=== PATIENT | male | born 1950 | race Caucasian/White ===

== ENCOUNTER 2018-12-13 12:47 | Emergency (ER) | payer MEDICAID, MEDICARE, OTHER ==
[~2018-12-13] VITALS: Ht 170.2 cm; Wt 108.9 kg
[~2018-12-13 12:47] MED LIST: BUPR75TA4; CIPR-273; DIVA125T12; DOXY75CA4; DULO60CA; TRAM-411
[2018-12-13 13:53] LABS: Alcohol, Urine < 3.0 mg/dL (0-5); Amphetamine Screen, Urine NEGATIVE (NEGATIVE); Barbiturate Scree,Urine NEGATIVE (NEGATIVE); Benzodiazephine Screen, Urine NEGATIVE (NEGATIVE); Cannabinoid Screen, Urine NEGATIVE (NEGATIVE); Cocaine Screen, Urine NEGATIVE (NEGATIVE); Opiate Scree,Urine NEGATIVE (NEGATIVE); Phencyclidine Screen, Urine NEGATIVE (NEGATIVE)
[2018-12-13 15:35] LABS: Basophils # (auto) 0 uL; Basophils % (auto) 0.2 % (0.0-2.0); Eosinophils # (auto) 0 uL; Eosinophils % (auto) 0.3 % (0.0-7.0); Hematocrit 43.4 % (41.0-53.0); Hemoglobin 14.7 g/dL (13.5-17.5); Lymphocytes # (auto) 1.3 uL; Lymphocytes % (auto) 18.2 % (10.0-50.0); Mean Corpuscular Hemoglobin 32.3 pg (28.0-32.0); Mean Corpuscular Hgb Conc. 33.8 g/dL (32.0-36.0); Mean Corpuscular Volume 95.4 fL (80.0-100.0); Monocytes # (auto) 0.3 uL; Monocytes % (auto) 4.5 % (0.0-12.0); Neutrophils # (auto) 5.5 uL; Neutrophils % (auto) 76.8 % (37.0-80.0); Nucleated Red Blood Cells % 0.1 %; Platelet Count (auto) 269 10^3/uL (140-450); Red Blood Cells 4.55 10^6/uL (4.5-5.90); Red Cell Distribution Width 14.3 % (11.8-14.3); White Blood Cell 7.1 10^3/uL (4.4-10.8)
[2018-12-13 15:48] LABS: Albumin 3.6 g/dL (3.4-5.0); Anion Gap 7 (5-15); BUN/Creatinine Ratio 13.7; Blood Alcohol < 3.0 mg/dL (0-5); Blood Urea Nitrogen 10 mg/dL (7-18); Calcium 8.4 mg/dL (8.5-10.1); Carbon Dioxide 22 mmol/L (21-32); Chloride 109 mmol/L (98-107); GFR African American 137 mL/min; GFR Non-African American 113 mL/min; Glucose 106 mg/dL (74-106); Magnesium 2.4 mg/dL (1.6-2.6); Potassium 3.7 mmol/L (3.5-5.1); Sodium 138 mmol/L (136-145)
[2018-12-13 15:53] LABS: Alanine Aminotransferase 29 U/L (16-61); Alkaline Phosphatase 103 U/L (45-117); Aspartate Aminotransferase 27 U/L (15-37); Bilirubin, Total 0.6 mg/dL (0.2-1.0); Total Protein 7.4 g/dL (6.4-8.2)
[2018-12-13 16:09] LABS: INR 0.93 (0.9-1.15); Partial Thromboplastin Time 28.2 sec (23.78-33.04)
[2018-12-13 17:30] VITALS: BP 129/69
== END 2018-12-13 17:52 | disposition home or self-care (01) ==
LOC: EDUNIT# 12:47 → ER 12:47 → EDBD 12:47 → ER 17:52
DX: R51 Headache (principal); I10 Essential (primary) hypertension; F31.9 Bipolar disorder, unspecified; Z98.49 Cataract extraction status, unspecified eye
CPT/HCPCS: 36415; 70450; 80053; 80307; 80320; 83735; 84484; 85025; 85610; 85730; 93005; 94761

== ENCOUNTER 2019-06-08 23:55 | Inpatient (IN) | payer OTHER ==
[~2019-06-08] VITALS: Ht 170.2 cm; Wt 94.8 kg
[2019-06-09 01:29] LABS: Basophils # (auto) 0 uL; Basophils % (auto) 0.2 % (0.0-2.0); Eosinophils # (auto) 0 uL; Eosinophils % (auto) 0.2 % (0.0-7.0); Hematocrit 46.4 % (41.0-53.0); Hemoglobin 16.2 g/dL (13.5-17.5); Lymphocytes # (auto) 1.7 uL; Lymphocytes % (auto) 14.9 % (10.0-50.0); Mean Corpuscular Hemoglobin 33.2 pg (28.0-32.0); Mean Corpuscular Hgb Conc. 34.9 g/dL (32.0-36.0); Mean Corpuscular Volume 94.9 fL (80.0-100.0); Monocytes # (auto) 0.6 uL; Monocytes % (auto) 5.3 % (0.0-12.0); Neutrophils # (auto) 9.1 uL; Neutrophils % (auto) 79.4 % (37.0-80.0); Platelet Count (auto) 290 10^3/uL (140-450); Red Blood Cells 4.89 10^6/uL (4.5-5.90); Red Cell Distribution Width 13.8 % (11.8-14.3); White Blood Cell 11.4 10^3/uL (4.4-10.8)
[2019-06-09 01:42] LABS: Albumin 3.7 g/dL (3.4-5.0); Calcium 8.9 mg/dL (8.5-10.1); Potassium 4.3 mmol/L (3.5-5.1)
[2019-06-09 01:44] LABS: BUN/Creatinine Ratio 14.3
[2019-06-09 01:47] LABS: Bilirubin, Total 0.4 mg/dL (0.2-1.0); Total Protein 7.7 g/dL (6.4-8.2)
[2019-06-09] MEDS ORDERED: SODIUM CHLORIDE 0.9% 1,000 ML IV ONE (02:15)
[2019-06-09] MEDS ORDERED: ONDANSETRON HCL 4 MG/2 ML VIAL IV ONE (02:15)
[2019-06-09] MEDS ORDERED: MORPHINE SULFATE 4 MG/ML SYR/VIAL IV ONE (02:15)
[2019-06-09 02:16] LABS: Urine Bacteria NONE SEEN /hpf (None Seen); Urine Blood Negative /uL (Negative); Urine Mucus FEW (None Seen); Urine Specific Gravity 1.013 (1.001-1.035); Urine WBC 2 /hpf (0 - 3)
[2019-06-09] MEDS ORDERED: ONDANSETRON HCL 4 MG/2 ML VIAL IV PRN (05:00)
[2019-06-09] MEDS ORDERED: NITROGLYCERIN 0.4 MG SL TAB SL PRN (05:00)
[2019-06-09] MEDS ORDERED: SODIUM CHLORIDE 0.9% 1,000 ML IV SCH (05:00)
[2019-06-09] MEDS ORDERED: LABETALOL HCL 5 MG/ML ML 20ML VIAL IV PRN (05:00)
[2019-06-09] MEDS ORDERED: MORPHINE SULF INJ 2 MG/ML SYRINGE 1ML IV PRN (05:00)
[2019-06-09] MEDS: HYDROmorphone HCL 2 MG/ML VL IV PRN ×4 (05:36→21:59)
[2019-06-09 06:05] VITALS: BP 144/90
--- NOTE | 2019-06-09 06:05 | NUR ---
TELE ADMIT FROM ER RECEIVED PATIENT VIA GURNEY FROM ER. PATIENT A/OX4, AMBULATORY. NO S/S OF DISTRESS OR SOB. NO PAIN NOTED OR REPORTED. UPDATED PATIENT ON POC, VERBALIZED UNDERSTANDING. BED LOCKED IN LOW POSITION, CALL LIGHT WITHIN REACH. WILL CONTINUE TO MONITOR PATIENT Q1HR AND PRN.
--- NOTE | 2019-06-09 07:03 | NUR ---
MED REC PATIENT UNABLE TO RECALL DOSAGES OF CURRENT MEDICATIONS. STATED HE WILL CALL TO BRING IN LIST OF MEDICATIONS AND DOSAGES TODAY.
[2019-06-09] MEDS: buPROPion HCL 75 MG TAB PO SCH ×2 (07:05→17:51)
--- NOTE | 2019-06-09 08:00 | NUR ---
Opening Shift Note Assumed care of patient, awake and alert. No S/S of distress/SOB or pain. Patient is currently NPO except for meds. Instructed on POC and to call for assist PRN, will continue to monitor for changes Q1hr and PRN.
[2019-06-09 09:00] VITALS: BP 163/84
[2019-06-09] MEDS: FAMOTIDINE (10MG/ML) 2ML VL IV SCH ×2 (10:08→21:41)
[2019-06-09] MEDS: amLODIPine BESYLATE 5 MG TAB PO SCH (10:09)
[2019-06-09] MEDS ORDERED: LORazepam 2MG/ML-1ML VIAL IV ONE (12:00)
[2019-06-09 13:00] VITALS: BP 182/95
[2019-06-09] MEDS ORDERED: LORazepam 2MG/ML-1ML VIAL IV PRN (13:15)
[2019-06-09] MEDS: LACTATED RINGER'S 1,000 ML IV SCH ×2 (14:17→21:41)
[2019-06-09] MEDS: FOLIC ACID 1 MG, MULTIPLE VITAMIN 10 ML, MAGNESIUM SULF SDV 50% 8 MEQ, THIAMINE INJ 100... INJ SCH ×5 (14:17)
--- NOTE | 2019-06-09 14:18 | NUR ---
Banana bag Called pharmacy twice regarding banana bag. Just now received it from ED. Started banana bag on patient.
[2019-06-09 17:00] VITALS: BP 153/90
[2019-06-09] MEDS ORDERED: SODIUM CHLORIDE 0.9% 2,000 ML IV ONE (17:30)
[2019-06-09] MEDS: TAMSULOSIN HYDROCHLORIDE 0.4 MG CAP PO SCH (17:50)
--- NOTE | 2019-06-09 19:59 | NUR ---
Opening Shift Note Assumed care of patient, awake and alert. No S/S of distress/SOB c/o pancreatitis pain 03/16. Instructed on POC and to call for assist PRN, will continue to monitor for changes Q1hr and PRN.Told patient that pain med.is due at ten o clock tonight.
[2019-06-09 22:00] VITALS: BP 151/83
[2019-06-10] MEDS: HYDROmorphone HCL 2 MG/ML VL IV PRN ×3 (04:48→23:23)
[2019-06-10 05:00] VITALS: BP 156/96
[2019-06-10] MEDS: LACTATED RINGER'S 1,000 ML IV SCH ×2 (05:30→17:10)
[2019-06-10 05:50] LABS: Basophils # (auto) 0 uL; Basophils % (auto) 0.1 % (0.0-2.0); Eosinophils # (auto) 0 uL; Hematocrit 43.6 % (41.0-53.0); Hemoglobin 15.4 g/dL (13.5-17.5); Lymphocytes # (auto) 1.3 uL; Lymphocytes % (auto) 6.1 % (10.0-50.0); Mean Corpuscular Hemoglobin 33.4 pg (28.0-32.0); Mean Corpuscular Hgb Conc. 35.4 g/dL (32.0-36.0); Mean Corpuscular Volume 94.3 fL (80.0-100.0); Monocytes # (auto) 1.4 uL; Monocytes % (auto) 6.6 % (0.0-12.0); Neutrophils # (auto) 18.3 uL; Neutrophils % (auto) 87.2 % (37.0-80.0); Platelet Count (auto) 256 10^3/uL (140-450); Red Blood Cells 4.62 10^6/uL (4.5-5.90); Red Cell Distribution Width 13.7 % (11.8-14.3)
[2019-06-10 06:12] LABS: Calcium 7.9 mg/dL (8.5-10.1); Potassium 3.6 mmol/L (3.5-5.1)
[2019-06-10 06:15] LABS: Cholesterol 110 mg/dL (< 200); Triglycerides 63 mg/dL (< 150)
[2019-06-10 06:17] LABS: BUN/Creatinine Ratio 10.9
[2019-06-10 06:27] LABS: HDL Cholesterol 64 mg/dL (40-59); LDL Cholesterol 47 mg/dL (< 100); Lipase 2748 U/L (73-393)
[2019-06-10] MEDS: buPROPion HCL 75 MG TAB PO SCH ×2 (06:31→18:47)
--- NOTE | 2019-06-10 07:17 | NUR ---
Report given to Gilberto Tineo, patient is resting , no distress.
--- NOTE | 2019-06-10 07:28 | NUR ---
Opening Shift Note Assumed care of patient, awake and alert. No S/S of distress/SOB. PT denies having any pain at this time. Bed in lowest and locked position with side rails upx2 and call light in reach. Instructed on POC and to call for assist PRN, will continue to monitor for changes Q1hr and PRN.
[2019-06-10 09:00] VITALS: BP 160/88
[2019-06-10] MEDS: amLODIPine BESYLATE 5 MG TAB PO SCH (11:14)
[2019-06-10] MEDS: FAMOTIDINE (10MG/ML) 2ML VL IV SCH ×2 (11:15→21:23)
[2019-06-10] MEDS ORDERED: SODIUM CHLORIDE 0.9% 1,000 ML IV ONE (11:45)
--- NOTE | 2019-06-10 11:49 | NUR ---
IV insertion IV access obtained, via clean sterile technique by inserting 22 gauge catheter at right FA after 1 attempt(s). IV secured properly. No trauma to site. Patient tolerated well.
--- NOTE | 2019-06-10 12:24 | NUR ---
Hansel AUSTIN AT PT BEDSIDE DISCUSSING POC WITH PT.
--- NOTE | 2019-06-10 14:50 | NUR ---
IV insertion IV access obtained, via clean sterile technique by inserting 20 gauge catheter at right FA after 1 attempt(s). IV secured properly. No trauma to site. Patient tolerated well.
[2019-06-10] MEDS: FOLIC ACID 1 MG, MULTIPLE VITAMIN 10 ML, MAGNESIUM SULF SDV 50% 8 MEQ, THIAMINE INJ 100... INJ SCH ×5 (14:53)
[2019-06-10 16:41] VITALS: BP 162/85
--- NOTE | 2019-06-10 16:45 | NUR ---
D/C Planning Per consult for home health safety evaluation. [facility] Ph:) Fax:) faxed medial records. Per Jodi from [facility] Pt has been accepted and will be seen within 48hrs upon d/c day. Contacted [facility] ph:( [phone]) Fax:( [phone]) faxed medical records and requested to provided authorization to [employer] . Addendum: 06/10/19 at 1659 by WALDO RICKETTS Amended: Links added.
[2019-06-10] MEDS: TAMSULOSIN HYDROCHLORIDE 0.4 MG CAP PO SCH (18:48)
[2019-06-10 18:56] LABS: Basophils # (auto) 0.1 uL; Basophils % (auto) 0.2 % (0.0-2.0); Eosinophils # (auto) 0 uL; Hematocrit 42.4 % (41.0-53.0); Hemoglobin 14.8 g/dL (13.5-17.5); Lymphocytes # (auto) 1.1 uL; Lymphocytes % (auto) 4.9 % (10.0-50.0); Mean Corpuscular Hemoglobin 33.1 pg (28.0-32.0); Mean Corpuscular Hgb Conc. 34.9 g/dL (32.0-36.0); Mean Corpuscular Volume 94.8 fL (80.0-100.0); Monocytes # (auto) 1.4 uL; Monocytes % (auto) 6.7 % (0.0-12.0); Neutrophils # (auto) 18.9 uL; Neutrophils % (auto) 88.2 % (37.0-80.0); Platelet Count (auto) 229 10^3/uL (140-450); Red Blood Cells 4.48 10^6/uL (4.5-5.90); Red Cell Distribution Width 13.6 % (11.8-14.3); White Blood Cell 21.5 10^3/uL (4.4-10.8)
--- NOTE | 2019-06-10 19:52 | NUR ---
Opening Shift Note Assumed care of patient, awake and alert. No S/S of distress/SOB or pain. Instructed on POC and to call for assist PRN, will continue to monitor for changes Q1hr and PRN.
[2019-06-10 23:43] VITALS: BP 155/96
[2019-06-11] MEDS: LACTATED RINGER'S 1,000 ML IV SCH ×3 (00:41→10:24)
[2019-06-11 05:16] VITALS: BP 137/87
--- NOTE | 2019-06-11 06:10 | NUR ---
Called the and informed that her signed the papers for living against medical advise,is waiting for her to pick him up, and the said she will come. Addendum: 06/11/19 at 0614 by Kera Correia RN Wrong notes, wrong patient.
[2019-06-11] MEDS: buPROPion HCL 75 MG TAB PO SCH ×2 (06:20→17:58)
--- NOTE | 2019-06-11 07:10 | NUR ---
Report given to Gilberto Tineo, patient is resting no distress.
[2019-06-11 08:00] VITALS: BP 136/83
--- NOTE | 2019-06-11 09:35 | NUR ---
SPOKE TO DR. Hansel MARCOS. NEW ORDERS RECEIVED READ BACK AND VERIFIED.
[2019-06-11 10:11] LABS: Basophils # (auto) 0.1 uL; Basophils % (auto) 0.4 % (0.0-2.0); Eosinophils # (auto) 0 uL; Eosinophils % (auto) 0.1 % (0.0-7.0); Hematocrit 41.5 % (41.0-53.0); Hemoglobin 14.7 g/dL (13.5-17.5); Lymphocytes # (auto) 1.2 uL; Lymphocytes % (auto) 6.2 % (10.0-50.0); Mean Corpuscular Hemoglobin 33.3 pg (28.0-32.0); Mean Corpuscular Hgb Conc. 35.4 g/dL (32.0-36.0); Mean Corpuscular Volume 94.3 fL (80.0-100.0); Monocytes # (auto) 1.2 uL; Monocytes % (auto) 6.1 % (0.0-12.0); Neutrophils # (auto) 16.7 uL; Neutrophils % (auto) 87.2 % (37.0-80.0); Platelet Count (auto) 231 10^3/uL (140-450); Red Blood Cells 4.41 10^6/uL (4.5-5.90); Red Cell Distribution Width 13.8 % (11.8-14.3); White Blood Cell 19.2 10^3/uL (4.4-10.8)
[2019-06-11] MEDS: FAMOTIDINE (10MG/ML) 2ML VL IV SCH (10:23)
[2019-06-11] MEDS: amLODIPine BESYLATE 5 MG TAB PO SCH (10:24)
[2019-06-11 10:27] LABS: BUN/Creatinine Ratio 12.5; Calcium 8.6 mg/dL (8.5-10.1); Magnesium 2.4 mg/dL (1.6-2.6); Potassium 3.3 mmol/L (3.5-5.1)
[2019-06-11] MEDS: FOLIC ACID 1 MG, MULTIPLE VITAMIN 10 ML, MAGNESIUM SULF SDV 50% 8 MEQ, THIAMINE INJ 100... INJ SCH ×5 (12:30)
[2019-06-11] MEDS: LACTULOSE 20Gm/30ML SOLN PO PRN ×2 (12:30→18:34)
[2019-06-11 13:00] VITALS: BP 130/84
[2019-06-11 16:49] VITALS: BP 127/72
[2019-06-11] MEDS: TAMSULOSIN HYDROCHLORIDE 0.4 MG CAP PO SCH (17:58)
--- NOTE | 2019-06-11 19:00 | NUR ---
DISCUSSED THE SOCIAL SERVICE CONSULT FOR HOME HEALTH WITH THE PATIENT. THE WAS EDUCATED ON THE NEED FOR HOME HEALTH. THE PATIENT STATED "I DON'T NEED HOME HEALTH. I CAN CARE FOR MYSELF AND MY CARES FOR ME WELL". THE PATIENT STATED THAT HE LIVES WITH HIS . THE PATIENT VERBALLY REFUSES THE SOCIAL SERVICE CONSULT AND THE HOME HEALTH EVALUATION. THE PATIENT THEN STATED "I REFUSE THE HOME HEALTH AND I WOULD LIKE TO GO HOME TONIGHT.". CARE ENDORSED TO MARTA MACIAS RN
--- NOTE | 2019-06-11 19:25 | NUR ---
Opening Note Received report from rosemary Vance RN. Patient is alert and oriented, no distress noted. Spoke with patient together with day Nurse. Patient states he wants to go home tonight and refused to wait for Home Health evaluation. Will call and prepare the d/c papers.
--- NOTE | 2019-06-13 16:20 | NUR ---
Discharge planning per consult, patient has orders for a home health evaluation. referral faxed to [facility]. Placed a follow up call, spoke with Nacho and she advised they will accept this patient and start of care would be on Thursday06.15.19. [place] [facility] Addendum: 06/13/19 at 1624 by LUPE KEENAN Amended: Links added.
== END 2019-06-11 20:15 | disposition home health service (06) | DRG 440 ==
LOC: ER 06-09 00:13 → TELE 06-09 00:14 → TELE-WESTW 06-09 06:05
PROVIDERS: ADMIT Nurse Practitioner Acute Care; ATTEND Internal Medicine
DX: K85.20 Alcohol induced acute pancreatitis without necrosis or infection (principal); I10 Essential (primary) hypertension; N40.0 Benign prostatic hyperplasia without lower urinary tract symptoms; E66.9 Obesity, unspecified; F10.10 Alcohol abuse, uncomplicated; N20.0 Calculus of kidney; F31.9 Bipolar disorder, unspecified; F41.9 Anxiety disorder, unspecified; K59.00 Constipation, unspecified; Z68.32 Body mass index [BMI] 32.0-32.9, adult
CPT/HCPCS: 36415; 74176; 74181; 80048; 80053; 80061; 80320; 81001; 83690; 83735; 85025; 87040; 96361; 96365; 96375; G0378; J2405; J3490

== ENCOUNTER 2019-06-21 23:15 | Emergency (ER) | payer OTHER ==
[~2019-06-21 23:15] MED LIST changes: -CIPR-273; -DOXY75CA4
== END 2019-06-22 00:17 | disposition left against medical advice (07) ==
LOC: ER 23:19
DX: R10.9 Unspecified abdominal pain (principal); Z53.21 Procedure and treatment not carried out due to patient leaving prior to being seen by health care provider

== ENCOUNTER 2019-07-01 06:27 | Inpatient (IN) | payer OTHER ==
[~2019-07-01] VITALS: Ht 170.2 cm; Wt 88.0 kg
[2019-07-01 07:18] LABS: Basophils # (auto) 0.1 uL; Basophils % (auto) 0.9 % (0.0-2.0); Eosinophils # (auto) 0.1 uL; Eosinophils % (auto) 1.3 % (0.0-7.0); Hematocrit 44.1 % (41.0-53.0); Hemoglobin 15.6 g/dL (13.5-17.5); Lymphocytes # (auto) 1.4 uL; Lymphocytes % (auto) 16.7 % (10.0-50.0); Mean Corpuscular Hemoglobin 33.3 pg (28.0-32.0); Mean Corpuscular Hgb Conc. 35.4 g/dL (32.0-36.0); Mean Corpuscular Volume 94.1 fL (80.0-100.0); Monocytes # (auto) 0.4 uL; Monocytes % (auto) 5.3 % (0.0-12.0); Neutrophils # (auto) 6.4 uL; Neutrophils % (auto) 75.8 % (37.0-80.0); Nucleated Red Blood Cells % 0.1 %; Platelet Count (auto) 317 10^3/uL (140-450); Red Blood Cells 4.68 10^6/uL (4.5-5.90); Red Cell Distribution Width 13.4 % (11.8-14.3); White Blood Cell 8.4 10^3/uL (4.4-10.8)
[2019-07-01 07:38] LABS: Albumin 3.3 g/dL (3.4-5.0); Calcium 8.3 mg/dL (8.5-10.1); Potassium 3.8 mmol/L (3.5-5.1)
[2019-07-01 07:45] LABS: BUN/Creatinine Ratio 14.5
[2019-07-01 07:46] LABS: Bilirubin, Total 0.6 mg/dL (0.2-1.0); Total Protein 7.4 g/dL (6.4-8.2)
[2019-07-01] MEDS ORDERED: MORPHINE SULFATE 4 MG/ML SYR/VIAL IV ONE (12:30)
[2019-07-01] MEDS ORDERED: ONDANSETRON HCL 4 MG/2 ML VIAL IV ONE (12:30)
[2019-07-01] MEDS ORDERED: PIPERACILLIN-TAZOB 3.375GM 100 ML IV ONE (13:00)
[2019-07-01] MEDS ORDERED: NITROGLYCERIN 0.4 MG SL TAB SL PRN (15:15)
[2019-07-01] MEDS ORDERED: ONDANSETRON HCL 4 MG/2 ML VIAL IV PRN (15:15)
[2019-07-01] MEDS ORDERED: MORPHINE SULF INJ 2 MG/ML SYRINGE 1ML IV PRN (15:15)
[2019-07-01] MEDS: SODIUM CHLORIDE 0.9% 1,000 ML IV SCH ×2 (15:36→23:59)
[2019-07-01] MEDS: MORPHINE SULF INJ 2 MG/ML SYRINGE 1ML IV PRN (18:09)
[2019-07-01] MEDS: HYDROcodone-ACET 5/325MG TAB PO PRN (21:25)
[2019-07-01 23:11] VITALS: BP 124/75
[2019-07-02] MEDS: FAMOTIDINE (10MG/ML) 2ML VL IV SCH ×2 (03:03→09:30)
[2019-07-02 05:00] VITALS: BP 119/74
[2019-07-02 05:31] VITALS: BP 126/72
[2019-07-02 06:53] LABS: Basophils # (auto) 0 uL; Basophils % (auto) 0.7 % (0.0-2.0); Eosinophils # (auto) 0.1 uL; Eosinophils % (auto) 1.7 % (0.0-7.0); Hematocrit 40.3 % (41.0-53.0); Hemoglobin 13.7 g/dL (13.5-17.5); Lymphocytes # (auto) 1.5 uL; Lymphocytes % (auto) 26.7 % (10.0-50.0); Mean Corpuscular Hemoglobin 32.7 pg (28.0-32.0); Mean Corpuscular Volume 96.1 fL (80.0-100.0); Monocytes # (auto) 0.4 uL; Neutrophils # (auto) 3.5 uL; Neutrophils % (auto) 62.9 % (37.0-80.0); Nucleated Red Blood Cells % 0.1 %; Platelet Count (auto) 260 10^3/uL (140-450); Red Blood Cells 4.19 10^6/uL (4.5-5.90); Red Cell Distribution Width 13.4 % (11.8-14.3); White Blood Cell 5.6 10^3/uL (4.4-10.8)
[2019-07-02 07:01] LABS: Albumin 2.9 g/dL (3.4-5.0); BUN/Creatinine Ratio 14.5; Calcium 7.9 mg/dL (8.5-10.1); Potassium 3.8 mmol/L (3.5-5.1)
[2019-07-02 07:09] LABS: Bilirubin, Total 0.5 mg/dL (0.2-1.0); Total Protein 6.6 g/dL (6.4-8.2)
[2019-07-02 09:00] VITALS: BP 127/84
[2019-07-02] MEDS: SODIUM CHLORIDE 0.9% 1,000 ML IV SCH ×3 (09:32→23:15)
[2019-07-02] MEDS: HYDROcodone-ACET 5/325MG TAB PO PRN ×2 (12:57→22:16)
[2019-07-02 13:00] VITALS: BP 134/80
[2019-07-02] MEDS ORDERED: SODIUM CHLORIDE 0.9% 2,000 ML IV ONE (13:00)
[2019-07-02] MEDS ORDERED: BUPR100T14 PO (13:07)
[2019-07-02 17:00] VITALS: BP 128/78
[2019-07-03] MEDS: HYDROcodone-ACET 5/325MG TAB PO PRN (04:12)
[2019-07-03 05:53] LABS: Basophils # (auto) 0 uL; Basophils % (auto) 0.3 % (0.0-2.0); Eosinophils # (auto) 0.2 uL; Eosinophils % (auto) 2.7 % (0.0-7.0); Hematocrit 40.6 % (41.0-53.0); Hemoglobin 13.9 g/dL (13.5-17.5); Lymphocytes # (auto) 2.3 uL; Lymphocytes % (auto) 39.8 % (10.0-50.0); Mean Corpuscular Hemoglobin 32.5 pg (28.0-32.0); Mean Corpuscular Hgb Conc. 34.2 g/dL (32.0-36.0); Mean Corpuscular Volume 95.1 fL (80.0-100.0); Monocytes # (auto) 0.5 uL; Neutrophils # (auto) 2.9 uL; Neutrophils % (auto) 49.2 % (37.0-80.0); Nucleated Red Blood Cells % 0.1 %; Platelet Count (auto) 261 10^3/uL (140-450); Red Blood Cells 4.27 10^6/uL (4.5-5.90); Red Cell Distribution Width 13.3 % (11.8-14.3); White Blood Cell 5.9 10^3/uL (4.4-10.8)
[2019-07-03 06:40] LABS: Potassium 3.5 mmol/L (3.5-5.1)
[2019-07-03 06:59] LABS: BUN/Creatinine Ratio 10.5; Calcium 8.3 mg/dL (8.5-10.1)
[2019-07-03] MEDS: MORPHINE SULF INJ 2 MG/ML SYRINGE 1ML IV PRN (08:58)
[2019-07-03] MEDS: SODIUM CHLORIDE 0.9% 1,000 ML IV SCH ×3 (08:58→23:15)
[2019-07-03] MEDS: FAMOTIDINE (10MG/ML) 2ML VL IV SCH (08:58)
[2019-07-03 09:00] VITALS: BP 152/87
[2019-07-03 13:02] VITALS: BP 140/89
[2019-07-03] MEDS ORDERED: SODIUM CHLORIDE 0.9% 2,000 ML IV ONE (13:30)
[2019-07-03 17:12] VITALS: BP 132/79
[2019-07-04 05:21] VITALS: BP 141/85
[2019-07-04 07:06] LABS: Basophils # (auto) 0.1 uL; Basophils % (auto) 0.8 % (0.0-2.0); Eosinophils # (auto) 0.3 uL; Eosinophils % (auto) 5.5 % (0.0-7.0); Hematocrit 39.9 % (41.0-53.0); Hemoglobin 14.1 g/dL (13.5-17.5); Lymphocytes # (auto) 2.3 uL; Lymphocytes % (auto) 37.7 % (10.0-50.0); Mean Corpuscular Hemoglobin 33.2 pg (28.0-32.0); Mean Corpuscular Hgb Conc. 35.3 g/dL (32.0-36.0); Monocytes # (auto) 0.7 uL; Monocytes % (auto) 10.9 % (0.0-12.0); Neutrophils # (auto) 2.8 uL; Neutrophils % (auto) 45.1 % (37.0-80.0); Nucleated Red Blood Cells % 0.2 %; Platelet Count (auto) 254 10^3/uL (140-450); Red Blood Cells 4.25 10^6/uL (4.5-5.90); Red Cell Distribution Width 13.3 % (11.8-14.3); White Blood Cell 6.1 10^3/uL (4.4-10.8)
[2019-07-04 07:29] LABS: BUN/Creatinine Ratio 6.3; Calcium 8.6 mg/dL (8.5-10.1); Magnesium 2.2 mg/dL (1.6-2.6); Potassium 3.7 mmol/L (3.5-5.1)
[2019-07-04 08:00] VITALS: BP 133/85
[2019-07-04 08:57] VITALS: BP 133/85
[2019-07-04] MEDS: FAMOTIDINE (10MG/ML) 2ML VL IV SCH (10:23)
[2019-07-04 13:00] VITALS: BP 128/79
[2019-07-04] MEDS: SODIUM CHLORIDE 0.9% 1,000 ML IV SCH (15:01)
[2019-07-04 16:43] VITALS: BP 134/89
[2019-07-04] MEDS ORDERED: ENSURE CLEAR Mixed Berry 8oz Carton PO SCH (18:00)
== END 2019-07-04 18:00 | disposition home health service (06) | DRG 439 ==
LOC: ER 06:30 → TELE 06:31 → TELE-WESTW 17:26 → TELE-EAST 07-02 04:12 → TELE-WESTW 07-02 17:50
PROVIDERS: ADMIT Internal Medicine; ATTEND Internal Medicine
DX: K85.90 Acute pancreatitis without necrosis or infection, unspecified (principal); E44.1 Mild protein-calorie malnutrition; K86.1 Other chronic pancreatitis; F31.9 Bipolar disorder, unspecified; F41.9 Anxiety disorder, unspecified; I10 Essential (primary) hypertension; M19.90 Unspecified osteoarthritis, unspecified site; Z80.3 Family history of malignant neoplasm of breast; Z68.30 Body mass index [BMI] 30.0-30.9, adult; Z83.3 Family history of diabetes mellitus; Z82.0 Family history of epilepsy and other diseases of the nervous system
CPT/HCPCS: 36415; 74176; 80048; 80053; 82150; 83605; 83690; 83735; 85025; 87040; 87081; 93005; 96365; 96375; G0378; J2405; J2543; J3490

== ENCOUNTER 2019-09-11 08:10 | Emergency (ER) | payer OTHER ==
[~2019-09-11] VITALS: Ht 170.2 cm; Wt 88.5 kg
[~2019-09-11 08:10] MED LIST changes: +BUPR100T14 PO; -BUPR75TA4; -DIVA125T12; -DULO60CA; -TRAM-411
[2019-09-11 08:15] VITALS: BP 125/76
[2019-09-11 09:00] LABS: Urine Bacteria NONE SEEN /hpf (None Seen); Urine Blood Negative /uL (Negative); Urine Mucus FEW (None Seen); Urine Specific Gravity 1.027 (1.001-1.035); Urine WBC 1 /hpf (0 - 3)
== END 2019-09-11 10:07 | disposition left against medical advice (07) ==
LOC: EDBD 08:30 → MERGE 08:30 → ER 08:30
DX: R10.10 Upper abdominal pain, unspecified (principal); Z53.21 Procedure and treatment not carried out due to patient leaving prior to being seen by health care provider
CPT/HCPCS: 81001

== ENCOUNTER 2023-01-02 12:28 | Inpatient (IN) | payer OTHER ==
[~2023-01-02] VITALS: Ht 170.2 cm; Wt 89.7 kg
[~2023-01-02 12:28] MED LIST changes: +BUPR-160 PO; -BUPR100T14 PO
[2023-01-02] MEDS ORDERED: SODIUM CHLORIDE 0.9% 1,000 ML IV ONE (13:45)
[2023-01-02] MEDS ORDERED: fentaNYL CITRATE 100 MCG/2 ML VL IV ONE (13:45)
[2023-01-02] MEDS ORDERED: TAMSULOSIN HYDROCHLORIDE 0.4 MG CAP PO ONE (13:45)
[2023-01-02 13:56] LABS: Urine Bacteria NONE SEEN /hpf (None Seen); Urine Blood 3+ /uL (Negative); Urine Hyaline Cast FEW /lpf (0 - 2); Urine Mucus FEW (None Seen); Urine Specific Gravity 1.025 (1.001-1.035); Urine WBC 1 /hpf (0 - 3)
[2023-01-02 14:11] LABS: Albumin 3.4 g/dL (3.4-5.0); Calcium 8.9 mg/dL (8.5-10.1); Potassium 3.8 mmol/L (3.5-5.1)
[2023-01-02 14:15] LABS: BUN/Creatinine Ratio 17.4 (10.0-20.0); Basophils # (auto) 0 10 ^3/uL (0-0.2); Basophils % (auto) 0.5 % (0.0-2.0); Bilirubin, Total 0.4 mg/dL (0.2-1.0); CRP High Sensitivity 0.02 mg/dL (< 0.3); Eosinophils # (auto) 0.1 10 ^3/uL (0-0.8); Eosinophils % (auto) 1.1 % (0.0-7.0); Hematocrit 42.1 % (41.0-53.0); Hemoglobin 14.5 g/dL (13.5-17.5); Lymphocytes # (auto) 1.9 10 ^3/uL (0.4-5.4); Lymphocytes % (auto) 26.7 % (10.0-50.0); Mean Corpuscular Hgb Conc. 34.4 g/dL (32.0-36.0); Monocytes # (auto) 0.6 10 ^3/uL (0-1.3); Monocytes % (auto) 7.7 % (0.0-12.0); Neutrophils # (auto) 4.7 10 ^3/uL (1.6-8.6); Nucleated Red Blood Cells % 0.1 %; Red Blood Cells 4.53 10^6/uL (4.5-5.90); Red Cell Distribution Width 13.9 % (11.8-14.3); Total Protein 6.9 g/dL (6.4-8.2); White Blood Cell 7.3 10^3/uL (4.4-10.8)
[2023-01-02] MEDS ORDERED: ACETAMINOPHEN 325 MG TAB PO PRN (15:00)
[2023-01-02] MEDS ORDERED: ONDANSETRON HCL 4 MG/2 ML VIAL IV PRN (15:00)
[2023-01-02] MEDS ORDERED: MORPHINE SULFATE INJ 2 MG/ml SYRG IV PRN ×2 (15:00)
[2023-01-02] MEDS ORDERED: NITROGLYCERIN 0.4 MG SL TAB SL PRN (15:00)
[2023-01-02] MEDS ORDERED: DOCUSATE SOD 100 MG CAP PO PRN (15:00)
[2023-01-02] MEDS ORDERED: LOS25T PO (20:54)
[2023-01-02] MEDS ORDERED: TAMS0.4C36 PO (20:54)
[2023-01-02 22:00] VITALS: BP 157/77
[2023-01-02] MEDS: HYDROcodone-ACET 5/325MG TAB PO PRN (22:06)
[2023-01-02] MEDS: amLODIPine BESYLATE 5 MG TAB PO SCH (22:08)
[2023-01-02] MEDS: SODIUM CHLORIDE 0.9% 1,000 ML IV SCH (22:40)
[2023-01-03 04:59] VITALS: BP 129/61
[2023-01-03 06:56] LABS: Potassium 3.4 mmol/L (3.5-5.1)
[2023-01-03 07:03] LABS: BUN/Creatinine Ratio 17.8 (10.0-20.0); Calcium 8.1 mg/dL (8.5-10.1)
[2023-01-03 09:00] VITALS: BP 119/61
[2023-01-03] MEDS ORDERED: buPROPion HCL 100 MG TAB PO SCH (10:00)
[2023-01-03] MEDS ORDERED: TAMSULOSIN HYDROCHLORIDE 0.4 MG CAP PO SCH (10:00)
[2023-01-03] MEDS: amLODIPine BESYLATE 5 MG TAB PO SCH (10:04)
[2023-01-03] MEDS: SODIUM CHLORIDE 0.9% 1,000 ML IV SCH (11:00)
[2023-01-03] MEDS ORDERED: POTASSIUM CHL 20 Meq TABLET PO ONE (11:45)
[2023-01-03] MEDS ORDERED: HYDR1TAB97 PO (13:21)
[2023-01-03 13:25] VITALS: BP 118/63
[2023-01-03] MEDS: HYDROcodone-ACET 5/325MG TAB PO PRN (14:05)
== END 2023-01-03 14:40 | disposition home or self-care (01) | DRG 694 ==
LOC: ER 12:28 → OVERFLOW 15:06 → WEST WING 16:29
PROVIDERS: ADMIT Internal Medicine; ATTEND Internal Medicine
DX: N13.2 Hydronephrosis with renal and ureteral calculous obstruction (principal); N13.8 Other obstructive and reflux uropathy; E11.9 Type 2 diabetes mellitus without complications; F31.9 Bipolar disorder, unspecified; G30.9 Alzheimer's disease, unspecified; F02.80 Dementia in other diseases classified elsewhere, unspecified severity, without behavioral disturbance, psychotic disturbance, mood disturbance, and anxiety; I10 Essential (primary) hypertension; N40.1 Benign prostatic hyperplasia with lower urinary tract symptoms; Z80.3 Family history of malignant neoplasm of breast; Z82.49 Family history of ischemic heart disease and other diseases of the circulatory system; Z79.899 Other long term (current) drug therapy; Z79.84 Long term (current) use of oral hypoglycemic drugs
CPT/HCPCS: 36415; 74018; 74176; 76775; 80048; 80053; 81001; 83605; 83690; 84484; 85025; 86141; 87086; 93005; 96361; 96374; G0378

== ENCOUNTER 2025-06-21 22:47 | Inpatient (IN) | payer OTHER ==
[~2025-06-21] VITALS: Ht 170.2 cm; Wt 92.1 kg
[~2025-06-21 22:47] MED LIST changes: -BUPR-160 PO; +BUPR-346 PO; +HYDR1TAB97 PO; +LOS25T PO; +TAMS0.4C39 PO
--- NOTE | 2025-06-21 22:59 | ECG ---
[facility] Test Date: 2025-06-21 Test Time: 22:47:41 Pat Name: GARTH AUSTIN Department: [facility] ED Patient ID: [facility]-[id number] Room: 0291T Gender: M Silverer: EDDIE : 1950 Requested By: EMERGENCY EMERGENCY Order Number: [id number] Reading MD: Phil Man Measurements Intervals Joffre Rate: 63 P: 23 AK: 188 QRS: -9 QRSD: 111 T: 39 QT: 444 QTc: 455 Interpretive Statements Sinus rhythm Abnormal R-wave progression, early transition Electronically Signed On 06-24-2025 18:43:05 PDT by Phil Man Please click the below link to view image of tracing.
--- NOTE | 2025-06-21 23:01 | ED.PDOC ---
History of Present Illness HPI Comments 74 year old male with PMHx HTN, enlarged prostate, bipolar disorder, presents to the ED with a chief compliant of syncopal episode onset today (06/21/25). Per EMS, patient was at [facility] when he was found slumped over on the [place], was unresponsive. EMS states patient was hypotensive BP 75/50, BG 202, IV fluids and 8 mg Zofran was given in route to ED. Upon ED arrival, patient states he has about 16 oz tequila prior to going for dinner, states he rarely drinks ETOH. Patient is currently experiencing nausea. Denies head injury, headache, dizziness, fever, chills, shortness of breath, chest pain. No other symptoms or modifying factors present at this time. Time Seen by MD: 22:55 Primary Care Provider: BRANDIE Reviewed Notes: Medications, Allergies Allergies: Coded Allergies: NO KNOWN ALLERGIES (Unverified , 05/11/11) Home Meds Active Scripts Hydrocodone-Acetaminophen (Hydrocodone/Acetaminophen 5-325 mg) 1 Tab Tab, 1 TAB PO Q6HPRN PRN, #20 TAB Prov:BAR MARCOS MD 01/03/23 Reported Medications Losartan Potassium (Losartan Potassium) 25 Mg Tab, 1 TAB PO DAILY 01/02/23 Tamsulosin Hcl (Tamsulosin Hcl) 0.4 Mg Cap, 1 CAP PO DAILY 01/02/23 Bupropion Hcl (Bupropion Hcl) 100 Mg Tab, 300 MG PO DAILY for 30 Days, MG 07/02/19 Information Source: Patient, Emergency Med Personnel Mode of Arrival: EMS Severity: Moderate Timing: Hours Duration: Since onset Prehospital treatment: IVF, Treatment (Zofran 8 mg) Past Medical History PAST MEDICAL HISTORY: Depression, HTN Past Medical History (Other): bipolar disorder, enlarged prostate Surgical History: Hernia Repair Family History Family History: Reviewed,noncontributory to illness Social History Smoker: Non-Smoker Alcohol: Occasionally Drugs: Denies Drug Use Lives In: Home Constitutional: denies: chills, diaphoresis, fatigue, fever, malaise, sweats, weakness, others EENTM: denies: blurred vision, double vision, ear bleeding, ear discharge, ear drainage, ear pain, ear ringing, eye pain, eye redness, hearing loss, mouth pain, mouth swelling, nasal discharge, nose bleeding, nose congestion, nose pain, photophobia, tearing, throat pain, throat swelling, voice changes, others Respiratory: denies: cough, hemoptysis, orthopnea, SOB at rest, shortness of breath, SOB with excertion, stridor, wheezing, others Cardiovascular: denies: chest pain, dizzy spells, diaphoresis, Dyspnea on exertion, edema, irregular heart beat, left arm pain, lightheadedness, palpitations, PND, syncope, others Gastrointestinal: reports: nausea; denies: abdomen distended, abdominal pain, blood streaked bowels, constipated, diarrhea, dysphagia, difficulty swallowing, hematemesis, melena, poor appetite, poor fluid intake, rectal bleeding, rectal pain, vomiting, others Genitourinary: denies: burning, dysuria, flank pain, frequency, hematuria, incontinence, penile discharge, penile sore, pain, testicle pain, testicle swelling, urgency, others Neurological: reports: others (syncope); denies: dizziness, fainting, headache, left sided numbness, left sided weakness, numbness, paresthesia, pre-existing deficit, right sided numbness, right sided weakness, seizure, speech problems, tingling, tremors, weakness Musculoskeletal: denies: back pain, gout, joint pain, joint swelling, muscle pain, muscle stiffness, neck pain, others Integumetry: denies: bruises, change in color, change in hair/nails, dryness, laceration, lesions, lumps, rash, wounds, others Allergic/Immunocompromised: denies: Difficulty Healing, Frequent Infections, Hives, Itching, others Hematologic/Lymphatic: denies: anemia, blood clots, easy bleeding, easy b ruising, swollen glands, others Endocrine: denies: excessive hunger, excessive sweating, excessive thirst, excessive urination, flushing, intolerance to cold, intolerance to heat, unexplained weight gain, unexplained weight loss, others Psychiatric: denies: anxiety, bipolar disorder, depression, hopeless, panic disorder, schizophrenia, sleepless, suicidal, others All Other Systems: Reviewed and Negative Physical Exam General Appearance: Normal HEENT: Normal ENT Inspection, Pharynx Normal, TMs Normal Neck: Full Range of Motion, Non-Tender, Normal, Normal Inspection Respiratory: Chest Non-Tender, Lungs Clear, No Accessory Muscle Use, No Respiratory Distress, Normal Breath Sounds Cardiovascular: No Edema, No JVD, No Murmur, No Gallop, Normal Peripheral Pulses, Regular Rate/Rhythm Breast Exam: Deferred Gastrointestinal: No Organomegaly, Non Tender, No Pulsatile Mass, Normal Bowel Sounds, Soft Genitalia: Deferred Pelvic: Deferred Rectal: Deferred Extremities: No calf tenderness, Normal capillary refill, Normal inspection, Normal range of motion, Non-tender, No pedal edema Musculoskeletal : Apperance: Normal 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 Was a procedure done?: No Differential Dx Considerations may include: Differential diagnosis includes but not limited to: Dehydration, cardiac arrhythmia, coronary ischemia, sepsis, electrolyte abnormality and others X-Ray, Labs, Meds, VS Vital Signs Date Time Temp Pulse Resp B/P (MAP) Pulse Ox O2 Delivery O2 Flow Rate FiO2 06/21/25 22:50 97.0 65 18 75/46 98 97.0 06/21/25 22:47 63 Lab Test 06/22/25 02:30 06/22/25 01:00 06/22/25 00:25 06/21/25 23:28 Range/Units Lactic Acid Level 2.9 *H 3.6 *H 0.4-2.0 mmol/L Urine Color Light-yellow Yellow Urine Clarity Clear Clear Urine pH 5.5 5.0-9.0 Urine Specific Carey 1.008 1.001-1.035 Urine Protein Negative Negative Urine Ketones Negative Negative Urine Blood Negative Negative /uL Urine Nitrite Negative Negative Urine Bilirubin Negative Negative Urine Urobilinogen Normal Negative mg/dL Urine Leukocyte Esterase Negative Negative /uL Urine RBC None seen 0 - 3 /hpf Urine Microscopic WBC 5 H 0-3 /HPF Urine Squamous Epithelial Cells None seen <5 /hpf Urine Calcium Oxalate Crystals Few None Seen Urine Bacteria None seen None Seen /hpf Urine Hyaline Casts Mod 0 - 2 /lpf Urine Mucus Few None Seen Urine Glucose Normal Normal mg/dL Urine Opiates Screen Neg NEGATIVE Urine Fentanyl Screen Neg NEGATIVE Urine Barbiturates Screen Neg NEGATIVE Urine Phencyclidine Screen Neg NEGATIVE Urine Amphetamines Screen Neg NEGATIVE Urine Benzodiazepines Screen Neg NEGATIVE Urine Cocaine Screen Neg NEGATIVE Urine Cannabinoids Screen Neg NEGATIVE POC Glucose 150 H 70-106 mg/dl Test 06/21/25 23:17 Range/Units White Blood Count 6.5 4.4-10.8 10^3/uL Red Blood Count 4.34 L 4.5-5.90 10^6/uL Hemoglobin 14.0 13.5-17.5 g/dL Hematocrit 40.6 L 41.0-53.0 % Mean Corpuscular Volume 93.7 80.0-100.0 fL Mean Corpuscular Hemoglobin 32.3 H 28.0-32.0 pg Mean Corpuscular Hemoglobin Concent 34.4 32.0-36.0 g/dL Red Cell Distribution Width 13.7 11.8-14.3 % Platelet Count 207 140-450 10^3/uL Mean Platelet Volume 7.0 6.9-10.8 fL Neutrophils (%) (Auto) 69.1 37.0-80.0 % Lymphocytes (%) (Auto) 25.4 10.0-50.0 % Monocytes (%) (Auto) 4.7 0.0-12.0 % Eosinophils (%) (Auto) 0.5 0.0-7.0 % Basophils (%) (Auto) 0.3 0.0-2.0 % Neutrophils # (Auto) 4.5 1.6-8.6 10 ^3/uL Lymphocytes # (Auto) 1.6 0.4-5.4 10 ^3/uL Monocytes # (Auto) 0.3 0-1.3 10 ^3/uL Eosinophils # (Auto) 0 0-0.8 10 ^3/uL Basophils # (Auto) 0 0-0.2 10 ^3/uL Nucleated Red Blood Cells 0.1 % Sodium Level 141 136-145 mmol/L Potassium Level 3.5 3.5-5.1 mmol/L Chloride Level 110 H 98-107 mmol/L Carbon Dioxide Level 17 L 20-31 mmol/L Anion Gap 14 5-15 Blood Urea Nitrogen 9 9-23 mg/dL Creatinine 1.11 0.700-1.30 mg/dL Glomerular Filtration Rate Calc 69 >90 mL/min BUN/Creatinine Ratio 8.1 L 10.0-20.0 Serum Glucose 153 H 74-106 mg/dL Hemoglobin A1c 6.8 H <5.7 % A1C Calcium Level 7.8 L 8.7-10.4 mg/dL Total Bilirubin 0.3 0.2-1.0 mg/dL Aspartate Amino Transferase (AST) 27 13-40 U/L Alanine Aminotransferase (ALT) 38 7-40 U/L Alkaline Phosphatase 123 H 46-116 U/L Total Protein 6.0 5.7-8.2 g/dL Albumin 3.5 3.2-4.8 g/dL Salicylates Level < 3.0 -30 mg/dL Acetaminophen Level < 2.0 L 10.0-20.0 UG/ML Plasma/Serum Blood Alcohol 32.7 H <10 mg/dL Current Medications Medications (Trade) Dose Ordered Sig/Azeb Route Start Time Stop Time Status Last Admin Ondansetron HCl (Zofran) 4 mg ONCE ONCE IV 06/21/25 23:00 06/21/25 23:01 DC 06/21/25 23:12 Sodium Chloride 1,000 ml @ 1,000 mls/hr Q1H ONCE IV 06/21/25 23:15 06/22/25 00:14 DC 06/21/25 23:15 Piperacillin Sod/ Tazobactam Sod 100 ml @ 100 mls/hr ONCE ONCE IV 06/22/25 00:15 06/22/25 01:14 DC 06/22/25 00:44 Time of 1ST Reevaluation: 23:25 Reevaluation 1ST: Unchanged Patient Education/Counseling: Diagnosis, Treatment, Prognosis Family Education/Counseling: No Family Present SEPSIS Sepsis Screen Recent Procedure: No On Antibiotic Therapy: No Respiratory Rate >20: No Heart Rate >90: No Temp<36 C (96.8 F) or >38.3 C: No SBP <90 or MAP <65 mmHG: Yes New Acute Mental Status Change: Yes Is the patient on CPAP, BIPAP,: No IV fluid challenge completed?: No Physician Orders Blood Culture (06/22/25 00:03) Chest Portable (06/22/25 00:04) Straightcath If Unable To Void (06/22/25 01:47) Head Without Contrast (06/22/25 02:25) Orthostatic Vital Signs (06/22/25 06:00) Orthostatic Vital Signs (06/22/25 12:00) Orthostatic Vital Signs (06/22/25 18:00) Orthostatic Vital Signs (06/23/25 00:00) Vital Signs Date Time Temp Pulse Resp B/P (MAP) Pulse Ox O2 Delivery O2 Flow Rate FiO2 06/21/25 22:50 97.0 65 18 75/46 98 97.0 06/21/25 22:47 63 Laboratory Tests Test 06/21/25 23:17 06/22/25 00:25 06/22/25 02:30 White Blood Count 6.5 10^3/uL (4.4-10.8) Lactic Acid Level 3.6 mmol/L (0.4-2.0) *H 2.9 mmol/L (0.4-2.0) *H Medications Medications Dose Ordered Sig/Azeb Route Start Time Stop Time Status Last Admin Dose Admin Ondansetron HCl 4 mg ONCE ONCE IV 06/21/25 23:00 06/21/25 23:01 DC 06/21/25 23:12 Piperacillin Sod/ Tazobactam Sod 100 ml @ 100 mls/hr ONCE ONCE IV 06/22/25 00:15 06/22/25 01:14 DC 06/22/25 00:44 Sodium Chloride 1,000 ml @ 1,000 mls/hr Q1H ONCE IV 06/21/25 23:15 06/22/25 00:14 DC 06/21/25 23:15 Departure 1 Departure Time of Disposition: 03:30 Impression: Primary Impression: Syncope Additional Impression: Hypotension Disposition: 09 ADMITTED INPATIENT Admit to: Med Surg Condition: Guarded Discharged With: Self Critical Care Note Critical Care Time?: No Stability Stability form required: No Heart Score Heart Score: Heart Score Response (Comments) Value History N/A 0 EKG N/A 0 Age N/A 0 Risk Factors N/A 0 Troponin N/A 0 Total 0 I personally scribed for KELLI CORONA MD ([email or web address]) on 06/21/25 at 23:01. Electronically submitted by Viridiana Woodson ([email or web address]). KELLI CORONA MD Jun 21, 2025 23:01
[2025-06-21] MEDS: SODIUM CHLORIDE 0.9% 1,000 ML IV ONE (23:10)
[2025-06-21] MEDS: ONDANSETRON HCL 4 MG/2 ML VIAL IV ONE (23:12)
[2025-06-21 23:27] LABS: Hematocrit 40.6 % (41.0-53.0); Hemoglobin 14.0 g/dL (13.5-17.5); Mean Corpuscular Hemoglobin 32.3 pg (28.0-32.0); Mean Corpuscular Volume 93.7 fL (80.0-100.0); Nucleated Red Blood Cells % 0.1 %
[2025-06-21 23:48] LABS: Alanine Aminotransferase 38 U/L (7-40); Albumin 3.5 g/dL (3.2-4.8); Anion Gap 14 (5-15); BUN/Creatinine Ratio 8.1 (10.0-20.0); Bilirubin, Total 0.3 mg/dL (0.2-1.0); Potassium 3.5 mmol/L (3.5-5.1); Sodium 141 mmol/L (136-145); Total Protein 6.0 g/dL (5.7-8.2)
[2025-06-21 23:52] LABS: Acetaminophen < 2.0 UG/ML (10.0-20.0); Salicylate < 3.0 mg/dL (-30)
[2025-06-21 23:53] LABS: Alkaline Phosphatase 123 U/L (46-116); Blood Urea Nitrogen 9 mg/dL (9-23); Calcium 7.8 mg/dL (8.7-10.4); Carbon Dioxide 17 mmol/L (20-31); Chloride 110 mmol/L (98-107); Glucose 153 mg/dL (74-106)
[2025-06-22] VITALS (7 sets, daily range): BP systolic 119–128; BP diastolic 58–69; PULSE 61–92; RESP 16–18; TEMP 97.7–98.1; O2SAT 95–99
[2025-06-22] MEDS: SODIUM CHLORIDE 0.9% 1,000 ML IV ONE (00:08)
[2025-06-22] MEDS: PIPERACILLIN-TAZOB 3.375GM 100 ML IV ONE (00:44)
[2025-06-22 00:54] LABS: Lactic Acid w/Reflex 3.6 mmol/L (0.4-2.0)
--- NOTE | 2025-06-22 01:12 | DVH ---
CHEST RADIOGRAPH Indication: SOB Technique: Single frontal view of the chest was obtained COMPARISON: None FINDINGS: Lines and Tubes: None Lungs: Diminished lung volumes with concomitant exaggeration of the pulmonary vasculature. No evidenc e of focal consolidation. Pleura: No effusion. No pneumothorax. Cardiomediastinal contours: Unremarkable Bones: Unremarkable IMPRESSION: 1. Diminished lung volumes with concomitant exaggeration of the pulmonary vasculature. 2. No evidence of focal consolidation.
[2025-06-22 02:33] LABS: Urine Protein, UAD Negative (Negative)
[2025-06-22 03:09] LABS: Amphetamine Screen, Urine Neg (NEGATIVE)
[2025-06-22 03:27] LABS: Barbiturate Scree,Urine Neg (NEGATIVE); Benzodiazephine Screen, Urine Neg (NEGATIVE); Cocaine Screen, Urine Neg (NEGATIVE); Opiate Scree,Urine Neg (NEGATIVE); Phencyclidine Screen, Urine Neg (NEGATIVE)
[2025-06-22 03:28] LABS: Cannabinoid Screen, Urine Neg (NEGATIVE)
--- NOTE | 2025-06-22 03:37 | DVH ---
EXAM: CT HEAD WITHOUT CONTRAST INDICATION: syncope episode TECHNIQUE: CT of the head without intravenous contrast. Radiation Dose : 1. Head: CT Dose: CTDI volume is 58.5 mGy. Dose-length product is 2203.46 mGy*cm The dose indicators for CT are the volume Computed Tomography (CT) Dose Index (CTDIvol) and the Dose Length Product (DLP), and are measured in units of mGy and mGy-cm, respectively. These indicators are not patient dose, but values generated from the CT scanner acquisition factors. The report includes radiation exposure data for exposures received during this examination. COMPARISON: None FINDINGS: There is no evidence of acute intracranial hemorrhage, extra-axial collection, mass effect, midline s hift, herniation or hydrocephalus. Increased prominence of the ventricles, sulci and cisterns consistent with sequelae of atrophic corti janet volume loss. The garcia-white differentiation is intact. Moderate diffuse confluent periventricular and subcortical white matter hypoattenuation is nonspecifi c but may be related to small vessel ischemic disease. The visualized paranasal sinuses and mastoid air cells are clear. The surrounding soft tissues and osseous structures are unremarkable. IMPRESSION: 1. No acute intracranial abnormality. 2. Chronic sequelae of microangiopathy and atrophic cortical volume loss. Radiation optimization: All CT scans at this facility use at least one of these dose optimization christina hniques: automated exposure control mA and/or kV adjustment per patient size (includes targeted exam s where dose is matched to clinical indication) or iterative reconstruction.
[2025-06-22] MEDS ORDERED: ACETAMINOPHEN 325 MG TAB PO PRN (04:00)
[2025-06-22] MEDS ORDERED: ONDANSETRON HCL 4 MG/2 ML VIAL IV PRN (04:00)
[2025-06-22] MEDS: SODIUM CHLORIDE 0.9% 1,000 ML IV SCH (04:07)
--- NOTE | 2025-06-22 04:16 | DVHHP2 ---
Admitting Diagnosis: Syncope History of Present Illness History Source: Patient Exam Limitations: No limitations HPI Mr. Jai Hanson is a 74 year old male with PMHx HTN, enlarged prostate, bipolar disorder, depression who presents with a chief complaint of syncopal episode while at a restaurant. Patient reports earlier yesterday he had dizziness, and lightheadedness but did not seek medical attention , later in the day he had "two Margaritas" and then went to dinner at a restaurant where he does not remember "passing out". Denies any head trauma, neck pain, headaches, blurry vision, nausea, vomiting, fevers, chills. Patient workup in ED alcohol level 32.7, Na 141, K 3.5, BUN 9/1.11, Lactic acid level 3.6, WBC 6.5, H&H 14/40.6, Platelets 207. CT head wo contrast resulted 1. No acute intracranial abnormality. 2. Chronic sequelae of microangiopathy and atrophic cortical volume loss. Chest x ray:1. Diminished lung volumes with concomitant exaggeration of the pulmonary vasculature. 2. No evidence of focal consolidation. Patient admitted for further evaluation. Home Meds Active Scripts Hydrocodone-Acetaminophen (Hydrocodone/Acetaminophen 5-325 mg) 1 Tab Tab, 1 TAB PO Q6HPRN PRN, #20 TAB Prov:BAR MARCOS MD 01/03/23 Reported Medications Losartan Potassium (Losartan Potassium) 25 Mg Tab, 1 TAB PO DAILY 01/02/23 Tamsulosin Hcl (Tamsulosin Hcl) 0.4 Mg Cap, 1 CAP PO DAILY 01/02/23 Bupropion Hcl (Bupropion Hcl) 100 Mg Tab, 300 MG PO DAILY for 30 Days, MG 07/02/19 Past Medical History Cardiac: HTN Pulmonary: No pertinent Hx Central Nervous System: No pertinent Hx GI: No pertinent Hx Hemotology/Oncology: No pertinent Hx Hepatobiliary: No pertinent Hx Psychiatric: Bipolar, Depression Musculoskeletal: No pertinent Hx Rheumotologic: No pertinent Hx Infectious Disease: No peritnent Hx ENT: No pertinent Hx Renal/: Other (enlarged prostate) Endocrine: No pertinent Hx Dermatology: No pertinent Hx Patient Family History: Alzheimer's disease G8 MOTHER Arthritis G8 MOTHER Diabetes mellitus G8 MOTHER FH: breast cancer G8 MOTHER Hypertension G8 MOTHER Smoker: No Hx (Negative) Alocohol: Rare Drugs: None Lives with: With family Domestic Violence: Neg Review of Systems Constitutional: No symptom reported Ears, Nose, & Throat: No symptom reported Eyes: No symptom reported Pulmonary/Respiratory: No symptom reported Cardiovascular: No symptom reported Gastrointestinal: No symptom reported Genitourinary: No symptom reported Musculoskeletal: No symptom reported Skin: No symptom reported Psychiatric: No symptom reported Endocrine: No symptom reported Hemotologic/Lymphatic: No symptom reported All Other Systems syncopal episode x1 , dizziness H&P Exam Vital Signs Vital Signs Date Time Temp Pulse Resp B/P (MAP) Pulse Ox O2 Delivery O2 Flow Rate FiO2 06/21/25 22:50 97.0 65 18 75/46 98 97.0 General Appeara: Well developed, Well nourished, Normal Appearance Head Exam: Normal inspection Neck Exam: Normal inspection, Non-tender, Normal alignment Eye Exam: bilateral eye Normal inspection, bilateral eye PERRL, bilateral eye EOMI Ear Exam: bilateral ear Auricle normal Nasal Exam: Normal inspection Mouth: Normal Inspection Pulmonary/Respiratory: Normal inspection, Normal breath sounds, Chest non- tender, Lungs clear Cardiovascular/Chest: Normal inspection, Regular rate, Normal Rhythm Peripheral Pulses: 2+ dorsalis pedis (R), 2+ dorsalis pedis (L), 2+ Radial (R), 2+ Radial (L) Abdominal Exam: Normal bowel sounds, 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: Normal hearing, Normal speech, PERRL Motor/Sensory: Normal sensory function, Normal motor function Neuro/Mental St: Alert, Oriented Appearance: Appropriate appearance, Appropriate insight Eye contact/ Speech: Cooperative, Good eye contact, Normal speech Thoughts/Psych: Normal thought pattern Coordination/Gait: Normal finger->nose Skin Exam: Normal inspection, Normal color, Warm/dry SEPSIS Sepsis Screen Date sepsis recognized/suspect: Jun 21, 2025 Time Sepsis recognized/suspect: 2249 Recent Procedure: No On Antibiotic Therapy: No Respiratory Rate >20: No Heart Rate >90: No Temp<36 C (96.8 F) or >38.3 C: No SBP <90 or MAP <65 mmHG: No New Acute Mental Status Change: No Is the patient on CPAP, BIPAP,: No Physician Orders Blood Culture (06/22/25 00:03) Chest Portable (06/22/25 00:04) Straightcath If Unable To Void (06/22/25 01:47) Head Without Contrast (06/22/25 02:25) Orthostatic Vital Signs (06/22/25 06:00) Orthostatic Vital Signs (06/22/25 12:00) Orthostatic Vital Signs (06/22/25 18:00) Orthostatic Vital Signs (06/23/25 00:00) Admit (06/22/25 03:56) * Cardiology Consult (06/22/25 03:56) Echo 2d Mode Cardiac Dop (06/22/25 03:56) Fall Risk Precautions In Place QSHIFT (06/22/25 03:56) Basic Metabolic Panel (06/23/25 05:00) Basic Metabolic Panel (06/24/25 05:00) Lactic Acid W/ Reflex Order (06/22/25 06:00) Cardiac Diet-2gna,Lofat,Lochol (06/22/25 Breakfast) Full Code (06/22/25 03:56) Stat Ekg For Chest Pain (06/22/25 03:56) Notify Md Of Changes From Base (06/22/25 03:56) Director Of Training For 24 Hours (06/22/25 03:56) Emergency Dysrhythmia Protocol (06/22/25 03:56) Rhythm Strips Once Every Shift (06/22/25 03:56) Oxygen By Nasal Cannula (06/22/25 03:56) Ondansetron Hcl (Zofran) (06/22/25 04:00) Famotidine Tablet (Pepcid Tablet) (06/22/25 10:00) Acetaminophen Tablet (Tylenol Tablet) (06/22/25 04:00) Sodium Chloride 0.9% (06/22/25 04:00) Hemoglobin A1c (06/22/25 04:00) Bupropion Tablet (Wellbutrin Tablet) (06/22/25 10:00) Tamsulosin Hydrochloride (Flomax) (06/22/25 10:00) Vital Signs Date Time Temp Pulse Resp B/P (MAP) Pulse Ox O2 Delivery O2 Flow Rate FiO2 06/21/25 22:50 97.0 65 18 75/46 98 97.0 06/21/25 22:47 63 Laboratory Tests Test 06/21/25 23:17 06/22/25 00:06/22/25 02:30 White Blood Count 6.5 10^3/uL (4.4-10.8) Lactic Acid Level 3.6 mmol/L (0.4-2.0) *H 2.9 mmol/L (0.4-2.0) *H Medications Medications Dose Ordered Sig/Azeb Route Start Time Stop Time Status Last Admin Dose Admin Ondansetron HCl 4 mg ONCE ONCE IV 06/21/25 23:00 06/21/25 23:01 DC 06/21/25 23:12 4 MG Piperacillin Sod/ Tazobactam Sod 100 ml @ 100 mls/hr ONCE ONCE IV 06/22/25 00:15 06/22/25 01:14 DC 06/22/25 00:44 100 MLS/HR Sodium Chloride 1,000 ml @ 1,000 mls/hr Q1H ONCE IV 06/21/25 23:15 06/22/25 00:14 DC 06/21/25 23:15 1,000 MLS/HR Labs/Xrays Labs Test 06/22/25 02:30 06/22/25 01:00 06/21/25 23:28 06/21/25 23:17 Range/Units Lactic Acid Level 2.9 *H 0.4-2.0 mmol/L Urine Color Light-yellow Yellow Urine Clarity Clear Clear Urine pH 5.5 5.0-9.0 Urine Specific [place] 1.008 1.001-1.035 Urine Protein Negative Negative Urine Ketones Negative Negative Urine Blood Negative Negative /uL Urine Nitrite Negative Negative Urine Bilirubin Negative Negative Urine Urobilinogen Normal Negative mg/dL Urine Leukocyte Esterase Negative Negative /uL Urine RBC None seen 0 - 3 /hpf Urine Microscopic WBC 5 H 0-3 /HPF Urine Squamous Epithelial Cells None seen <5 /hpf Urine Calcium Oxalate Crystals Few None Seen Urine Bacteria None seen None Seen /hpf Urine Hyaline Casts Mod 0 - 2 /lpf Urine Mucus Few None Seen Urine Glucose Normal Normal mg/dL Urine Opiates Screen Neg NEGATIVE Urine Fentanyl Screen Neg NEGATIVE Urine Barbiturates Screen Neg NEGATIVE Urine Phencyclidine Screen Neg NEGATIVE Urine Amphetamines Screen Neg NEGATIVE Urine Benzodiazepines Screen Neg NEGATIVE Urine Cocaine Screen Neg NEGATIVE Urine Cannabinoids Screen Neg NEGATIVE POC Glucose 150 H 70-106 mg/dl White Blood Count 6.5 4.4-10.8 10^3/uL Red Blood Count 4.34 L 4.5-5.90 10^6/uL Hemoglobin 14.0 13.5-17.5 g/dL Hematocrit 40.6 L 41.0-53.0 % Mean Corpuscular Volume 93.7 80.0-100.0 fL Mean Corpuscular Hemoglobin 32.3 H 28.0-32.0 pg Mean Corpuscular Hemoglobin Concent 34.4 32.0-36.0 g/dL Red Cell Distribution Width 13.7 11.8-14.3 % Platelet Count 207 140-450 10^3/uL Mean Platelet Volume 7.0 6.9-10.8 fL Neutrophils (%) (Auto) 69.1 37.0-80.0 % Lymphocytes (%) (Auto) 25.4 10.0-50.0 % Monocytes (%) (Auto) 4.7 0.0-12.0 % Eosinophils (%) (Auto) 0.5 0.0-7.0 % Basophils (%) (Auto) 0.3 0.0-2.0 % Neutrophils # (Auto) 4.5 1.6-8.6 10 ^3/uL Lymphocytes # (Auto) 1.6 0.4-5.4 10 ^3/uL Monocytes # (Auto) 0.3 0-1.3 10 ^3/uL Eosinophils # (Auto) 0 0-0.8 10 ^3/uL Basophils # (Auto) 0 0-0.2 10 ^3/uL Nucleated Red Blood Cells 0.1 % Sodium Level 141 136-145 mmol/L Potassium Level 3.5 3.5-5.1 mmol/L Chloride Level 110 H 98-107 mmol/L Carbon Dioxide Level 17 L 20-31 mmol/L Anion Gap 14 5-15 Blood Urea Nitrogen 9 9-23 mg/dL Creatinine 1.11 0.700-1.30 mg/dL Glomerular Filtration Rate Calc 69 >90 mL/min BUN/Creatinine Ratio 8.1 L 10.0-20.0 Serum Glucose 153 H 74-106 mg/dL Calcium Level 7.8 L 8.7-10.4 mg/dL Total Bilirubin 0.3 0.2-1.0 mg/dL Aspartate Amino Transferase (AST) 27 13-40 U/L Alanine Aminotransferase (ALT) 38 7-40 U/L Alkaline Phosphatase 123 H 46-116 U/L Total Protein 6.0 5.7-8.2 g/dL Albumin 3.5 3.2-4.8 g/dL Salicylates Level < 3.0 -30 mg/dL Acetaminophen Level < 2.0 L 10.0-20.0 UG/ML Plasma/Serum Blood Alcohol 32.7 H <10 mg/dL Assessment/Plan Problem List: (1) Syncope Plan This is a 74 yo male with known history of hypertension, enlarged prostate, bipolar disorder, depression who presents to the hospital with syncope. 1. Syncope 2. Dizziness 3. Hypotension 4. Lactic acidosis 5. Bipolar disorder Plan Admit Telemetry unit Cardiology consultation, 2D echocardiogram, Orthostatic vital signs Fall precautions Monitor BMP, lactic acid level IV fluids NS Continue home medications when reconciled BC x2, urine culture Discussed all above with patient in ED 17 , patient verbalizes agreement and understanding of care plan. All questions were answered. Discussed with supervising MD. Plan discussed with: Patient, Other Code Visit Code Visit Total Time (mins): 45 Additional Comments Additional Comments Additional Comments Patient is seen and evaluated by me earlier today. 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 I agree with her evaluation, documentation, assessment and care plan as outlined. BLUE DIAZ Jun 22, 2025 04:16 JENNIFER POTTS MD Jun 22, 2025 12:22
--- NOTE | 2025-06-22 08:03 | ECG ---
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
[2025-06-22] MEDS ORDERED: DEXTROSE (50%) 50ML SYRG IV PRN (09:45)
--- NOTE | 2025-06-22 10:05 | DVHINCON2 ---
Date Seen: Jun 22, 2025 Referring Physician MD Jaime Reason for Consultation Syncope, hypotension History of Present Illness This is a 74-year-old man who presented to the emergency room via EMS with a chief complaint of syncopal event on . EMS was called to the scene at a local restaurant where the patient was found slumped over the table prompting to call 911. At that time, he was found to be hypotensive and administered NS x 300 mLs IV, Zofran 8 mg IV, and underwent a blood glucose level of 202 mg/dL. The patient reports during the day he experienced lightheadedness no dizziness. After work he had a couple of margaritas and went to the restaurant where the incident occurred. Denies head trauma, oral trauma, incontinence, or presyncopal symptoms such as visual disturbances, aura, chest discomfort, palpitations, or SOB. The patient endorses during the past two weeks he noted intermittent episodes of lightheadedness an hour after taking his daily losartan therapy 25 mg. He underwent a 12 lead electrocardiogram revealing a sinus rhythm without obvious ST-T segment changes. There is no baseline troponin level. Significant medical history includes hypertension, benign prostatic hyperplasia, and bipolar disorder. Past Medical History Past medical history reviewed. No other significant than mentioned above. Past Surgical History Past surgical history reviewed. No other significant than mentioned above. Family History: Alzheimer's disease G8 MOTHER Arthritis G8 MOTHER Diabetes mellitus G8 MOTHER FH: breast cancer G8 MOTHER Hypertension G8 MOTHER Family History Family history reviewed. Social History Admits to rarely alcohol use. Denies the use of cigarettes or illicit drugs. Allergies: Coded Allergies: NO KNOWN ALLERGIES (Unverified , 05/11/11) Home Meds Active Scripts Hydrocodone-Acetaminophen (Hydrocodone/Acetaminophen 5-325 mg) 1 Tab Tab, 1 TAB PO Q6HPRN PRN, #20 TAB Prov:BAR MARCOS MD 01/03/23 Reported Medications Losartan Potassium (Losartan Potassium) 25 Mg Tab, 1 TAB PO DAILY 01/02/23 Tamsulosin Hcl (Tamsulosin Hcl) 0.4 Mg Cap, 1 CAP PO DAILY 01/02/23 Bupropion Hcl (Bupropion Hcl) 100 Mg Tab, 300 MG PO DAILY for 30 Days, MG 07/02/19 Home Meds Home medications reviewed. Current Medications Current Medications Medications (Trade) Dose Ordered Sig/Azeb Route PRN Reason Start Time Stop Time Status Last Admin Ondansetron HCl (Zofran) 4 mg Q6HPRN PRN IV NAUSEA / VOMITING 06/22/25 04:00 Famotidine (Pepcid Tablet) 20 mg BID PO 06/22/25 10:00 Acetaminophen (Tylenol Tablet) 650 mg Q6HPRN PRN PO PAIN SCALE 1-3 OR TEMP>100.4 06/22/25 04:00 Sodium Chloride 1,000 ml @ 100 mls/hr Q10H IV 06/22/25 04:00 06/22/25 04:07 Bupropion HCl (Wellbutrin Tablet) 300 mg DAILY PO 06/22/25 10:00 Tamsulosin HCl (Flomax) 0.4 mg DAILY PO 06/22/25 10:00 Review of Systems Constitutional: No symptom reported Ears, Nose, & Throat: No symptom reported Eyes: No symptom reported Neurological: Syncope, lightheadedness Pulmonary/Respiratory: No symptom reported Cardiovascular: No symptom reported Gastrointestinal: No symptom reported Genitourinary: No symptom reported Musculoskeletal: No symptom reported Skin: No symptom reported Psychiatric: No symptom reported Endocrine: No symptom reported Hemotologic/Lymphatic: No symptom reported Vital Signs Vital Signs Date Time Temp Pulse Resp B/P (MAP) Pulse Ox O2 Delivery O2 Flow Rate FiO2 06/22/25 06:46 92 16 Nasal Cannula* 2 28 06/22/25 05:00 112/75 (87) 97 06/21/25 22:58 97.9 97.9 Physical Exam General Appearance: Cooperative. Well developed. Obese In no acute distress Head Exam: Normal inspection Neck Exam: Normal inspection. Non-tender. Normal alignment Pulmonary/Respiratory: Chest non-tender. Clear bilateral breath sounds Cardiovascular/Chest: Regular rate and rhythm. S1, S2. NSR. No murmurs. No JVD. Peripheral Pulses: 2+ Radial (R). 2+ Radial (L). 2+ Pedal (R). 2+ Pedal (L) Abdominal Exam: Normal bowel sounds. Soft. Nontender. No hepatospenomegaly. No masses Ankle Exam: Negative ankle edema Lower extremities: Negative lower extremity edema Neuro/Mental Status: A&O x4. Coherent Thoughts/Psych: Normal thought pattern. Appropriate mood and affect. Good judgement and insight Appearance: In no acute distress Skin Exam: Normal inspection. Normal color. Warm. Dry Labs/Diagnostic Data Labs Test 06/22/25 08:30 06/22/25 01:00 06/21/25 23:28 06/21/25 23:17 Range/Units Lactic Acid Level 1.9 0.4-2.0 mmol/L Urine Color Light-yellow Yellow Urine Clarity Clear Clear Urine pH 5.5 5.0-9.0 Urine Specific [place] 1.008 1.001-1.035 Urine Protein Negative Negative Urine Ketones Negative Negative Urine Blood Negative Negative /uL Urine Nitrite Negative Negative Urine Bilirubin Negative Negative Urine Urobilinogen Normal Negative mg/dL Urine Leukocyte Esterase Negative Negative /uL Urine RBC None seen 0 - 3 /hpf Urine Microscopic WBC 5 H 0-3 /HPF Urine Squamous Epithelial Cells None seen <5 /hpf Urine Calcium Oxalate Crystals Few None Seen Urine Bacteria None seen None Seen /hpf Urine Hyaline Casts Mod 0 - 2 /lpf Urine Mucus Few None Seen Urine Glucose Normal Normal mg/dL Urine Opiates Screen Neg NEGATIVE Urine Fentanyl Screen Neg NEGATIVE Urine Barbiturates Screen Neg NEGATIVE Urine Phencyclidine Screen Neg NEGATIVE Urine Amphetamines Screen Neg NEGATIVE Urine Benzodiazepines Screen Neg NEGATIVE Urine Cocaine Screen Neg NEGATIVE Urine Cannabinoids Screen Neg NEGATIVE POC Glucose 150 H 70-106 mg/dl White Blood Count 6.5 4.4-10.8 10^3/uL Red Blood Count 4.34 L 4.5-5.90 10^6/uL Hemoglobin 14.0 13.5-17.5 g/dL Hematocrit 40.6 L 41.0-53.0 % Mean Corpuscular Volume 93.7 80.0-100.0 fL Mean Corpuscular Hemoglobin 32.3 H 28.0-32.0 pg Mean Corpuscular Hemoglobin Concent 34.4 32.0-36.0 g/dL Red Cell Distribution Width 13.7 11.8-14.3 % Platelet Count 207 140-450 10^3/uL Mean Platelet Volume 7.0 6.9-10.8 fL Neutrophils (%) (Auto) 69.1 37.0-80.0 % Lymphocytes (%) (Auto) 25.4 10.0-50.0 % Monocytes (%) (Auto) 4.7 0.0-12.0 % Eosinophils (%) (Auto) 0.5 0.0-7.0 % Basophils (%) (Auto) 0.3 0.0-2.0 % Neutrophils # (Auto) 4.5 1.6-8.6 10 ^3/uL Lymphocytes # (Auto) 1.6 0.4-5.4 10 ^3/uL Monocytes # (Auto) 0.3 0-1.3 10 ^3/uL Eosinophils # (Auto) 0 0-0.8 10 ^3/uL Basophils # (Auto) 0 0-0.2 10 ^3/uL Nucleated Red Blood Cells 0.1 % Sodium Level 141 136-145 mmol/L Potassium Level 3.5 3.5-5.1 mmol/L Chloride Level 110 H 98-107 mmol/L Carbon Dioxide Level 17 L 20-31 mmol/L Anion Gap 14 5-15 Blood Urea Nitrogen 9 9-23 mg/dL Creatinine 1.11 0.700-1.30 mg/dL Glomerular Filtration Rate Calc 69 >90 mL/min BUN/Creatinine Ratio 8.1 L 10.0-20.0 Serum Glucose 153 H 74-106 mg/dL Hemoglobin A1c 6.8 H <5.7 % A1C Calcium Level 7.8 L 8.7-10.4 mg/dL Total Bilirubin 0.3 0.2-1.0 mg/dL Aspartate Amino Transferase (AST) 27 13-40 U/L Alanine Aminotransferase (ALT) 38 7-40 U/L Alkaline Phosphatase 123 H 46-116 U/L Total Protein 6.0 5.7-8.2 g/dL Albumin 3.5 3.2-4.8 g/dL Salicylates Level < 3.0 -30 mg/dL Acetaminophen Level < 2.0 L 10.0-20.0 UG/ML Plasma/Serum Blood Alcohol 32.7 H <10 mg/dL Assessment Syncope and collapse Acute alcohol intoxication Rule out structural heart disease Diabetes mellitus, newly diagnosed HX of hypertension Bipolar disorder Obesity BPH Plan/Recommendation (Dr. Man) The patient presents with syncope in the setting of acute alcohol intoxication and possible dehydration. He will undergo a transthoracic echocardiogram to evaluate cardiac function along with a bilateral carotid duplex to rule out stenosis. Patient also suspected for antihypertensive therapy induced hypotension in the setting of alpha-seth use as well. He can benefit from a blood pressure log at home and withholding losartan therapy if SBP <120 mmHg. In the setting of unremarkable studies, we will sign off. Consider neurology consultation if deemed necessary. Thank you for allowing us to participate in this patient's care. Please call if you have any questions or concerns. This medical document was created using an electronic medical record system with voice recognition software and computerized dictation system. Although this document has been carefully reviewed, there might still be some phonetic and typographical errors. Occasional wrong-word or ``sound-alike substitutions may have occurred due to the inherent limitations of voice recognition software. These areas are purely typographical due to imperfections of the software programs and do not reflect any compromise in the patient's medical care. Please read the chart carefully and recognize, using context, where these substitutions have occurred. Plan discussed with: Patient, Other NYHA Physical activity limitations: NA Date of Service: Jun 22, 2025 Billing Provider: JUAN COONEY Cardiology Common Codes: 29433-OQXTUZC INP/OBS CARE (High) JUAN COONEY Jun 22, 2025 10:05
[2025-06-22] MEDS: FAMOTIDINE 20 MG TAB PO SCH (10:45)
[2025-06-22] MEDS: TAMSULOSIN HYDROCHLORIDE 0.4 MG CAP PO SCH (10:45)
--- NOTE | 2025-06-22 11:24 | DVH ---
Indication: Syncope rule out stenosis Technique: Real-time ultrasound images of the neck vessels with garcia-scale, color and wave Doppler we re obtained. Comparison: None Findings: There is moderate bilateral atherosclerotic plaque. The following peak systolic velocities were recorded in cm/sec: Right internal carotid: 67 Right common carotid: 87 Right external carotid: 110 Right internal/common carotid ratio: 0.8 Left internal carotid: 95 Left common carotid: 96 Left external carotid: 91 Left internal/common carotid ratio: 1.0 Right vertebral artery: Patent with normal antegrade direction of flow. Left vertebral artery: Patent with normal antegrade direction of flow. Impression: No hemodynamically significant stenosis by velocity criteria. Moderate atherosclerotic calcified plaque bilaterally.
[2025-06-22] MEDS: InsuLIN REG 1unit/0.01ml Soln (100units/ml) SC SCH ×2 (11:30→22:00)
[2025-06-22 11:32] LABS: Triglycerides 135 mg/dL (< 150)
[2025-06-22 11:34] LABS: Cholesterol 94 mg/dL (< 200); HDL Cholesterol 37 mg/dL (40-59)
[2025-06-22] MEDS: ACCU-CHEK COMFORT CURVE STRIP VI SCH (13:30)
[2025-06-23] VITALS (7 sets, daily range): BP systolic 114–148; BP diastolic 67–95; PULSE 52–62; RESP 16–17; TEMP 97.1–98; O2SAT 93–96
[2025-06-23 07:58] LABS: Potassium 4.0 mmol/L (3.5-5.1); Sodium 142 mmol/L (136-145)
[2025-06-23 07:59] LABS: Anion Gap 8 (5-15); Carbon Dioxide 26 mmol/L (20-31)
[2025-06-23 08:01] LABS: Calcium 8.3 mg/dL (8.7-10.4); Chloride 108 mmol/L (98-107)
[2025-06-23 08:04] LABS: BUN/Creatinine Ratio 11.4 (10.0-20.0); Blood Urea Nitrogen 10 mg/dL (9-23); Glucose 104 mg/dL (74-106)
[2025-06-23] MEDS ORDERED: METF-370 PO (14:46)
[2025-06-23] MEDS ORDERED: BLOO-200 XX (14:46)
--- NOTE | 2025-06-23 14:49 | DVHDS2 ---
Discharge Summary Date of Admission Jun 22, 2025 at 03:56 Date of Discharge: Jun 23, 2025 Labs/Diagnostic Data: Laboratory Results Test 06/23/25 09:50 06/23/25 06:52 06/22/25 08:30 06/22/25 02:40 POC Glucose 258 mg/dl (70-106) Sodium Level 142 mmol/L (136-145) Potassium Level 4.0 mmol/L (3.5-5.1) Chloride Level 108 mmol/L (98-107) Carbon Dioxide Level 26 mmol/L (20-31) Anion Gap 8 (5-15) Blood Urea Nitrogen 10 mg/dL (9-23) Creatinine 0.88 mg/dL (0.700-1.30) Glomerular Filtration Rate Calc 90 mL/min (>90) BUN/Creatinine Ratio 11.4 (10.0-20.0) Serum Glucose 104 mg/dL (74-106) Calcium Level 8.3 mg/dL (8.7-10.4) Lactic Acid Level 1.9 mmol/L (0.4-2.0) Triglycerides Level 135 mg/dL (< 150) Cholesterol Level 94 mg/dL (< 200) LDL Cholesterol 51 mg/dL (< 100) HDL Cholesterol 37 mg/dL (40-59) Thyroid Stimulating Hormone (TSH) 3.65 uIU/mL (0.55-4.78) Test 06/22/25 01:00 06/21/25 23:17 Urine Color Light-yellow (Yellow) Urine Clarity Clear (Clear) Urine pH 5.5 (5.0-9.0) Urine Specific [place] 1.008 (1.001-1.035) Urine Protein Negative (Negative) Urine Ketones Negative (Negative) Urine Blood Negative /uL (Negative) Urine Nitrite Negative (Negative) Urine Bilirubin Negative (Negative) Urine Urobilinogen Normal mg/dL (Negative) Urine Leukocyte Esterase Negative /uL (Negative) Urine RBC None seen /hpf (0 - 3) Urine Microscopic WBC 5 /HPF (0-3) Urine Squamous Epithelial Cells None seen /hpf (<5) Urine Calcium Oxalate Crystals Few (None Seen) Urine Bacteria None seen /hpf (None Seen) Urine Hyaline Casts Mod /lpf (0 - 2) Urine Mucus Few (None Seen) Urine Glucose Normal mg/dL (Normal) Urine Opiates Screen Neg (NEGATIVE) Urine Fentanyl Screen Neg (NEGATIVE) Urine Barbiturates Screen Neg (NEGATIVE) Urine Phencyclidine Screen Neg (NEGATIVE) Urine Amphetamines Screen Neg (NEGATIVE) Urine Benzodiazepines Screen Neg (NEGATIVE) Urine Cocaine Screen Neg (NEGATIVE) Urine Cannabinoids Screen Neg (NEGATIVE) White Blood Count 6.5 10^3/uL (4.4-10.8) Red Blood Count 4.34 10^6/uL (4.5-5.90) Hemoglobin 14.0 g/dL (13.5-17.5) Hematocrit 40.6 % (41.0-53.0) Mean Corpuscular Volume 93.7 fL (80.0-100.0) Mean Corpuscular Hemoglobin 32.3 pg (28.0-32.0) Mean Corpuscular Hemoglobin Concent 34.4 g/dL (32.0-36.0) Red Cell Distribution Width 13.7 % (11.8-14.3) Platelet Count 207 10^3/uL (140-450) Mean Platelet Volume 7.0 fL (6.9-10.8) Neutrophils (%) (Auto) 69.1 % (37.0-80.0) Lymphocytes (%) (Auto) 25.4 % (10.0-50.0) Monocytes (%) (Auto) 4.7 % (0.0-12.0) Eosinophils (%) (Auto) 0.5 % (0.0-7.0) Basophils (%) (Auto) 0.3 % (0.0-2.0) Neutrophils # (Auto) 4.5 10 ^3/uL (1.6-8.6) Lymphocytes # (Auto) 1.6 10 ^3/uL (0.4-5.4) Monocytes # (Auto) 0.3 10 ^3/uL (0-1.3) Eosinophils # (Auto) 0 10 ^3/uL (0-0.8) Basophils # (Auto) 0 10 ^3/uL (0-0.2) Nucleated Red Blood Cells 0.1 % Hemoglobin A1c 6.8 % A1C (<5.7) Total Bilirubin 0.3 mg/dL (0.2-1.0) Aspartate Amino Transferase (AST) 27 U/L (13-40) Alanine Aminotransferase (ALT) 38 U/L (7-40) Alkaline Phosphatase 123 U/L (46-116) Total Protein 6.0 g/dL (5.7-8.2) Albumin 3.5 g/dL (3.2-4.8) Salicylates Level < 3.0 mg/dL (-30) Acetaminophen Level < 2.0 UG/ML (10.0-20.0) Plasma/Serum Blood Alcohol 32.7 mg/dL (<10) Other Laboratory Tests 06/23/25 06:52 06/21/25 23:17 Brief Hx & Hospital Course: This is a 74-year-old man who presented to the emergency room via EMS with a chief complaint of syncopal event on . EMS was called to the scene at a local restaurant where the patient was found slumped over the table prompting to call 911. At that time, he was found to be hypotensive and administered NS x 300 mLs IV, Zofran 8 mg IV, and underwent a blood glucose level of 202 mg/dL. The patient reports during the day he experienced lightheadedness no dizziness. After work he had a couple of margaritas and went to the restaurant where the incident occurred. Denies head trauma, oral trauma, incontinence, or presyncopal symptoms such as visual disturbances, aura, chest discomfort, palpitations, or SOB. The patient endorses during the past two weeks he noted intermittent episodes of lightheadedness an hour after taking his daily losartan therapy 25 mg. He underwent a 12 lead electrocardiogram revealing a sinus rhythm without obvious ST-T segment changes. There is no baseline troponin level. Significant medical history includes hypertension, benign prostatic hyperplasia, and bipolar disorder. He is admitted and initially is noted to have low blood pressure felt causing his symptoms. His blood sugar also noted to be elevated around 200. Patient is admitted and ruled out for any sepsis or infection with a negative blood and urine cultures. Patient received IV fluids in his blood pressure has been normalized. Patient is advised to avoid dehydration and especially stop drinking alcohol given that it is known to cause diuresis. Patient counseled and educated regarding this. Otherwise rest of his workup and evaluations in the hospital is normal including cardiac workup. Patient is not orthostatic. He is feeling better back to normal baseline status. Therefore it is felt he could be safely discharged home. I have talked with the patient regarding his hospital diagnosis, treatment he received, discharge medications including side effects, discharge instructions and follow-up plan of care. He has verbalized understanding of these and agree with the care plan as outlined. Condition at Discharge: Stable Final Diagnosis/Problems List Syncope/near syncopal episode, hypotension, hyperglycemia, BPH, history of hypertension, acute alcohol intoxication Discharge Disposition: Home Discharge Instruct/Medications Diet: Consistent carbohydrate, Cardiac 2g Na,low cholest Activity: No Restrictions, As Tolerated Follow Up/Referral: Primary care physician next week for evaluation of high blood sugars and blood pressure checks. Medications: Take diabetic medication as prescribed and other home medications as you were taking. Scheduled Bupropion Hcl (Bupropion Hcl), 300 MG PO DAILY, (Reported) Losartan Potassium (Losartan Potassium), 1 TAB PO DAILY, (Reported) Metformin Hydrochloride (Metformin Hcl), 1 TAB PO BID Tamsulosin Hcl (Tamsulosin Hcl), 1 CAP PO DAILY, (Reported) Scheduled PRN Hydrocodone-Acetaminophen (Hydrocodone/Acetaminophen 5-325 mg), 1 TAB PO Q6HPRN PRN Durable Medical Equipment Blood Glucose Monitoring Suppl (Blood Glucose Monitoring W/Device), KIT XX AC, (DME) Discharge Statement: "Patient was advised to return to the ER or call 911 if any headaches, dizziness, shortness of breath, chest pain, abdominal pain, bleeding, fevers, or worsening of medical condition. Patient was counseled about treatment plan, medications, possible side effects, patientverbalized understanding. All questions were answered to the best of my ability. This discharge took greater then 30 minutes in planning, reviewing documentation, counseling the patient, and discussing with other team members." ASSESSMENT ASSESSMENT Assessment Syncope/near syncopal episode, hypotension, hyperglycemia, BPH, history of hypertension JENNIFER POTTS MD Jun 23, 2025 14:49
== END 2025-06-23 17:18 | disposition home or self-care (01) | DRG 315 ==
LOC: EDBD 22:47 → ER 22:49 → OVERFLOW 06-22 03:56 → TELE-WESTW 06-22 06:00
PROVIDERS: ADMIT Nurse Practitioner Family; ATTEND Hospitalist
DX: I95.9 Hypotension, unspecified (principal); E87.20 Acidosis, unspecified; F31.9 Bipolar disorder, unspecified; E66.9 Obesity, unspecified; F10.129 Alcohol abuse with intoxication, unspecified; N40.0 Benign prostatic hyperplasia without lower urinary tract symptoms; E11.65 Type 2 diabetes mellitus with hyperglycemia; I10 Essential (primary) hypertension; Z79.1 Long term (current) use of non-steroidal anti-inflammatories (NSAID); Z82.0 Family history of epilepsy and other diseases of the nervous system; Z82.49 Family history of ischemic heart disease and other diseases of the circulatory system; Z68.31 Body mass index [BMI] 31.0-31.9, adult; Z83.3 Family history of diabetes mellitus; Z80.3 Family history of malignant neoplasm of breast; Z79.899 Other long term (current) drug therapy; Y90.1 Blood alcohol level of 20-39 mg/100 ml
CPT/HCPCS: 36415; 70450; 71045; 80048; 80061; 80307; 81001; 82962; 83036; 83605; 84443; 87040; 87086; 93005; 93306; 93886; 96374; 96375; 97163; G0378; J2405; J2543